=== PATIENT | female | born 1950 | race Caucasian/White ===

== ENCOUNTER 2024-01-11 08:00 | Outpatient (CLI) | payer MEDICARE, OTHER ==
[2024-01-11 12:51] LABS: CALCIUM 9.4 mg/dL (8.5-10.3); CREATININE 0.6 mg/dL (0.6-1.3); POTASSIUM 3.5 mmol/L (3.5-4.5)
== END 2024-01-11 23:59 | disposition home or self-care (01) ==
LOC: LAB.N 08:00
PROVIDERS: ATTEND Family Medicine
DX: U07.1 COVID-19 (principal)
CPT/HCPCS: 36415; 80048